=== PATIENT | male | born 1995 | race Caucasian/White ===

== ENCOUNTER 2019-12-23 23:55 | Emergency (ER) | payer MEDICARE ==
[~2019-12-23] VITALS: Ht 185.4 cm; Wt 95.5 kg
[2019-12-24] VITALS: BP 157/83; TEMP 98.1
[2019-12-24 01:02] LABS: CALCIUM 9.2 mg/dL (8.4-10.2); CREATININE, serum 0.83 (0.66-1.25); MAGNESIUM 2.1 mg/dL (1.6-2.3); POTASSIUM 3.6 mmol/L (3.4-5.0)
[2019-12-24 01:30] VITALS: PULSE 80
== END 2019-12-24 01:30 | disposition home or self-care (01) ==
LOC: COL.ER 23:55
PROVIDERS: Emergency Medicine
DX: R20.2 Paresthesia of skin (principal); F41.9 Anxiety disorder, unspecified